=== PATIENT | female | born 1960 | race African-American/Black ===

== ENCOUNTER 2017-07-06 23:31 | Emergency (ER) | payer MEDICARE, OTHER ==
[~2017-07-06] VITALS: Ht 167.6 cm; Wt 103.0 kg
[~2017-07-06 23:31] MED LIST: AMLO10TA80 PO; ASPI-1159 PO; ATOR10TA69 PO; METF500T4 PO; METO25TA6 PO; PRAS10TA6 PO; TRAM50TA3 PO
[2017-07-07] MEDS ORDERED: MORPHINE SULFATE 2 MG/ML CPJ (NOT FOR IM USE) IV STA (01:25)
[2017-07-07] MEDS ORDERED: DIPHENHYDRAMINE 50MG/ML VIAL IV ONE (01:30)
[2017-07-07] MEDS ORDERED: ASPIRIN 81MG TABLET PO ONE (01:30)
[2017-07-07 01:51] LABS: BASOPHILS % 0.6 % (0.0-2.0); HEMATOCRIT. 34.5 % (36.0-48.0); HEMOGLOBIN. 11.1 g/dL (12.0-16.0); LYMPHOCYTES % 39.3 % (20.0-50.0); MEAN CORPUSCULAR HEMOGLOBIN 25.1 pg (28.0-32.0); MEAN CORPUSCULAR VOLUME 77.9 fL (81.0-99.0); MEAN PLATELET VOLUME 6.5 fl (7.4-10.4); NEUTROPHILS % 51.1 % (40.0-76.0); PLATELET 342 x1000/uL (130-400); RED BLOOD CELL COUNT 4.42 mill/uL (4.2-5.4); RED CELL DISTRIBUTION WIDTH 15.8 % (11.6-14.6)
[2017-07-07 01:54] LABS: CHLORIDE 108 mEq/L (98-107)
[2017-07-07 01:58] LABS: ETHANOL BLOOD < 10 mg/dL
[2017-07-07 01:59] LABS: INR 1.1; PROTHROMBIN TIME 11.3 sec (9.4-11.6)
[2017-07-07 06:31] VITALS: BP 102/65
== END 2017-07-07 06:38 | disposition home or self-care (01) ==
LOC: ER 23:31
DX: R07.9 Chest pain, unspecified (principal); I10 Essential (primary) hypertension; E78.00 Pure hypercholesterolemia, unspecified; I25.2 Old myocardial infarction; J45.909 Unspecified asthma, uncomplicated; Z79.82 Long term (current) use of aspirin
CPT/HCPCS: 36415; 71045; 80053; 83690; 84484; 85025; 85610; 93005; 96374; 96375; 99285; G0482; J1200; J2270

== ENCOUNTER 2018-06-15 16:06 | Inpatient (IN) | payer MEDICARE ==
[~2018-06-15] VITALS: Ht 165.1 cm; Wt 105.8 kg
[~2018-06-15 16:06] MED LIST changes: +METF-414 PO; -METF500T4 PO
[2018-06-15 21:36] LABS: BASOPHILS % 0.5 % (0.0-2.0); EOSINOPHILS % 2.3 % (0.0-5.0); HEMOGLOBIN. 12.3 g/dL (12.0-16.0); LYMPHOCYTES % 40.3 % (20.0-50.0); MEAN CORPUSCULAR HEMOGLOBIN 25.1 pg (28.0-32.0); MEAN CORPUSCULAR VOLUME 79.8 fL (81.0-99.0); MEAN PLATELET VOLUME 6.8 fl (7.4-10.4); MONOCYTES % 8.1 % (2.0-8.0); NEUTROPHILS % 48.8 % (40.0-76.0); PLATELET 271 x1000/uL (130-400); RED BLOOD CELL COUNT 4.89 mill/uL (4.2-5.4); RED CELL DISTRIBUTION WIDTH 17.4 % (11.6-14.6)
[2018-06-15 21:39] LABS: CHLORIDE 112 mEq/L (98-107)
[2018-06-15 21:43] LABS: PARTIAL THROMBOPLASTIN TIME 27.3 sec (23.4-31.0); PROTHROMBIN TIME 10.4 sec (9.6-11.0)
[2018-06-15 21:44] LABS: HCG SCREEN NEGATIVE
[2018-06-15] MEDS ORDERED: ASPIRIN 81MG TABLET PO ONE (22:00)
[2018-06-15 22:09] LABS: CLARITY URINE CLEAR (CLEAR); COLOR URINE YELLOW (YELLOW); KETONES URINE NEGATIVE (NEGATIVE); LEUKOCYTE ESTERASE URINE NEGATIVE (NEGATIVE); NITRITE URINE NEGATIVE (NEGATIVE); OCCULT BLOOD URINE NEGATIVE (NEGATIVE); PROTEIN URINE NEGATIVE (NEGATIVE); SPECIFIC GRAVITY URINE 1.019 (1.005-1.030)
[2018-06-15] MEDS ORDERED: ATORVASTATIN CALCIUM 40MG TABLET PO SCH (22:58)
[2018-06-16 11:38] VITALS: BP 147/128
[2018-06-16] MEDS ORDERED: PRAS10TA6 MT (12:09)
[2018-06-16] MEDS ORDERED: NIFE30TA83 MT (12:09)
[2018-06-16] MEDS ORDERED: MELO-104 MT (12:09)
[2018-06-16] MEDS ORDERED: TRAM150C25 MT (12:09)
[2018-06-16] MEDS ORDERED: MONT10TA24 MT (12:09)
[2018-06-16] MEDS ORDERED: LOSA25TA12 MT (12:09)
[2018-06-16 12:30] VITALS: BP 161/103
[2018-06-16] MEDS ORDERED: HYDROCODONE/ACETAMINOPHEN 5/325MG TABLET PO PRN (13:30)
[2018-06-16] MEDS ORDERED: REGADENOSON 0.4 MG/5 ML IV SCH (13:30)
[2018-06-16] MEDS ORDERED: CLONIDINE 0.1MG TABLET PO PRN (13:30)
[2018-06-16] MEDS ORDERED: ACETAMINOPHEN 325MG TABLET PO PRN (13:30)
[2018-06-16] MEDS ORDERED: ONDANSETRON HCL 4MG/2ML INJ IV PRN (13:30)
[2018-06-16] MEDS ORDERED: IPRATROPIUM/ALBUTEROL 0.5-3(2.5)MG/3ML NEB INH PRN (13:30)
[2018-06-16 14:03] LABS: *BARBITURATES SCREEN URINE NEGATIVE (NEGATIVE); *BENZODIAZEPINES SCREEN URINE NEGATIVE (NEGATIVE); *COCAINE SCREEN URINE NEGATIVE (NEGATIVE); METHADONE URINE SCREEN NEGATIVE (NEGATIVE)
[2018-06-16 14:04] LABS: *AMPHETAMINES SCREEN URINE NEGATIVE (NEGATIVE); CANNABINOID URINE SCREEN PRESUMTIVE POSITIVE (NEGATIVE); OPIATES URINE SCREEN NEGATIVE (NEGATIVE); PHENCYCLIDINE URINE SCREEN NEGATIVE (NEGATIVE)
[2018-06-16] MEDS: ASPIRIN 81MG EC TABLET PO SCH (14:22)
[2018-06-16] MEDS: LOSARTAN POTASSIUM 25 MG TABLET PO SCH (14:22)
[2018-06-16] MEDS: FUROSEMIDE 40MG/4ML VIAL IVP SCH ×2 (14:22→21:58)
[2018-06-16] MEDS: ENOXAPARIN 30MG/0.3ML SYR SUBCUT SCH ×2 (14:25→20:40)
[2018-06-16 15:45] LABS: CREATINE KINASE 283 IU/L (26-192)
[2018-06-16 16:26] VITALS: BP 152/78
[2018-06-16 20:00] VITALS: BP 150/85
[2018-06-16] MEDS: METOPROLOL TARTRATE 25MG TABLET PO SCH (20:38)
[2018-06-16] MEDS: ATORVASTATIN CALCIUM 20MG TABLET PO SCH (20:39)
[2018-06-16] MEDS: BLOOD SUGAR DIAGNOSTIC STRIP TEST SCH (21:04)
[2018-06-16 23:28] LABS: CREATINE KINASE 300 IU/L (26-192)
[2018-06-17] VITALS: BP 108/60
[2018-06-17] MEDS ORDERED: DEXTROSE 50% WATER 50ML SYRINGE IV PRN (03:45)
[2018-06-17 04:00] VITALS: BP 128/67
[2018-06-17] MEDS: BLOOD SUGAR DIAGNOSTIC STRIP TEST SCH ×4 (05:42→21:59)
[2018-06-17 06:18] LABS: BASOPHILS % 0.4 % (0.0-2.0); EOSINOPHILS % 2.2 % (0.0-5.0); HEMATOCRIT. 37.5 % (36.0-48.0); HEMOGLOBIN. 12.1 g/dL (12.0-16.0); LYMPHOCYTES % 47.5 % (20.0-50.0); MEAN CORPUSCULAR HEMOGLOBIN 25.5 pg (28.0-32.0); MEAN PLATELET VOLUME 6.9 fl (7.4-10.4); MONOCYTES % 8.5 % (2.0-8.0); NEUTROPHILS % 41.4 % (40.0-76.0); PLATELET 310 x1000/uL (130-400); RED BLOOD CELL COUNT 4.75 mill/uL (4.2-5.4); RED CELL DISTRIBUTION WIDTH 17.2 % (11.6-14.6)
[2018-06-17 06:24] LABS: CHLORIDE 107 mEq/L (98-107)
[2018-06-17 07:03] LABS: LDL CHOLESTEROL 65 mg/dL (5-100)
[2018-06-17 07:05] LABS: HDL CHOLESTEROL 52 mg/dL (40-59)
[2018-06-17 08:00] VITALS: BP 129/73
[2018-06-17] MEDS: INSULIN LISPRO 100 UNITS/ML SUBCUT SCH ×4 (08:10→21:00)
[2018-06-17] MEDS: ASPIRIN 81MG EC TABLET PO SCH (09:11)
[2018-06-17] MEDS: FUROSEMIDE 40MG/4ML VIAL IVP SCH ×2 (09:11→17:21)
[2018-06-17] MEDS: LOSARTAN POTASSIUM 25 MG TABLET PO SCH (09:11)
[2018-06-17] MEDS: METOPROLOL TARTRATE 25MG TABLET PO SCH ×2 (09:11→21:57)
[2018-06-17] MEDS: ENOXAPARIN 30MG/0.3ML SYR SUBCUT SCH ×2 (09:11→21:58)
[2018-06-17] MEDS ORDERED: REGADENOSON 0.4 MG/5 ML IV ONE (11:33)
[2018-06-17 12:00] VITALS: BP 120/67
[2018-06-17] MEDS: POTASSIUM CHLORIDE 20MEQ TABLET SR PO SCH (13:45)
[2018-06-17 16:00] VITALS: BP 108/68
[2018-06-17 20:00] VITALS: BP 134/64
[2018-06-17] MEDS: ATORVASTATIN CALCIUM 20MG TABLET PO SCH (21:57)
[2018-06-18] VITALS: BP 137/74
[2018-06-18 04:00] VITALS: BP 115/59
[2018-06-18] MEDS: BLOOD SUGAR DIAGNOSTIC STRIP TEST SCH (05:47)
[2018-06-18 06:38] LABS: BASOPHILS % 0.4 % (0.0-2.0); EOSINOPHILS % 2.7 % (0.0-5.0); HEMATOCRIT. 39.3 % (36.0-48.0); HEMOGLOBIN. 12.6 g/dL (12.0-16.0); LYMPHOCYTES % 50.4 % (20.0-50.0); MEAN CORPUSCULAR HEMOGLOBIN 25.3 pg (28.0-32.0); MONOCYTES % 10.7 % (2.0-8.0); NEUTROPHILS % 35.8 % (40.0-76.0); PLATELET 304 x1000/uL (130-400); RED BLOOD CELL COUNT 4.98 mill/uL (4.2-5.4); RED CELL DISTRIBUTION WIDTH 16.9 % (11.6-14.6)
[2018-06-18 07:43] LABS: CHLORIDE 109 mEq/L (98-107)
[2018-06-18 08:00] VITALS: BP 128/68
[2018-06-18] MEDS: INSULIN LISPRO 100 UNITS/ML SUBCUT SCH (08:10)
[2018-06-18] MEDS: ENOXAPARIN 30MG/0.3ML SYR SUBCUT SCH (09:22)
[2018-06-18] MEDS: METOPROLOL TARTRATE 25MG TABLET PO SCH (09:22)
[2018-06-18] MEDS: ASPIRIN 81MG EC TABLET PO SCH (09:22)
[2018-06-18] MEDS: FUROSEMIDE 40MG/4ML VIAL IVP SCH (09:22)
[2018-06-18] MEDS: LOSARTAN POTASSIUM 25 MG TABLET PO SCH (09:22)
[2018-06-18] MEDS: POTASSIUM CHLORIDE 20MEQ TABLET SR PO SCH (09:22)
[2018-06-18 16:37] VITALS: BP 118/68
== END 2018-06-18 17:14 | disposition home or self-care (01) | DRG 302 ==
LOC: ER 16:06 → 7WST 23:14 → EDBEDREQ 23:19 → EDBEDREQTM 23:19 → ENRESERV 06-16 10:03
PROVIDERS: ADMIT Internal Medicine; ATTEND Internal Medicine
DX: I25.118 Atherosclerotic heart disease of native coronary artery with other forms of angina pectoris (principal); I50.43 Acute on chronic combined systolic (congestive) and diastolic (congestive) heart failure; D68.59 Other primary thrombophilia; E66.2 Morbid (severe) obesity with alveolar hypoventilation; I11.0 Hypertensive heart disease with heart failure; I42.9 Cardiomyopathy, unspecified; E11.9 Type 2 diabetes mellitus without complications; E78.5 Hyperlipidemia, unspecified; Z95.5 Presence of coronary angioplasty implant and graft; Z79.82 Long term (current) use of aspirin; I25.2 Old myocardial infarction; Z79.84 Long term (current) use of oral hypoglycemic drugs; Z79.899 Other long term (current) drug therapy; Z68.38 Body mass index [BMI] 38.0-38.9, adult
CPT/HCPCS: 36415; 71045; 78452; 78582; 80048; 80061; 80305; 82550; 82962; 83036; 83735; 83880; 84439; 84443; 84484; 84703; 85379; 93005; 93017; 93306; 93923; 93970; 99285; A9500; A9558; C1893; J1650; J1940; J2785

== ENCOUNTER 2020-01-21 14:02 | Emergency (ER) | payer MEDICARE ==
[~2020-01-21] VITALS: Ht 160 cm; Wt 140.0 kg
[~2020-01-21 14:02] MED LIST changes: -AMLO10TA80 PO; -ASPI-1159 PO; +ASPI-1497 PO; -ATOR10TA69 PO; +LOSA25TA26 MT; -METO25TA6 PO; +NIFE-33 MT; -PRAS10TA6 PO; -TRAM50TA3 PO
[2020-01-21] MEDS ORDERED: GABA-529 PO (14:11)
[2020-01-21] MEDS ORDERED: HYDR25TA PO (14:11)
[2020-01-21 14:45] VITALS: BP 140/66
[2020-01-21 14:57] LABS: BASOPHILS % 0.9 % (0.0-2.0); EOSINOPHILS % 2.6 % (0.0-5.0); HEMATOCRIT. 38.9 % (36.0-48.0); HEMOGLOBIN. 12.5 g/dL (12.0-16.0); LYMPHOCYTES % 34.6 % (20.0-50.0); MEAN CORPUSCULAR HEMOGLOBIN 25.8 pg (28.0-32.0); MEAN CORPUSCULAR VOLUME 80.2 fL (81.0-99.0); MEAN PLATELET VOLUME 6.6 fl (7.4-10.4); MONOCYTES % 7.8 % (2.0-8.0); NEUTROPHILS % 54.1 % (40.0-76.0); PLATELET 299 x1000/uL (130-400); RED BLOOD CELL COUNT 4.85 mill/uL (4.2-5.4); RED CELL DISTRIBUTION WIDTH 16.6 % (11.6-14.6)
[2020-01-21 15:04] LABS: CHLORIDE 111 mEq/L (98-107)
[2020-01-21 15:08] LABS: ETHANOL BLOOD < 10 mg/dL
[2020-01-21 15:10] LABS: LDL CHOLESTEROL 84 mg/dL (5-100)
== END 2020-01-21 15:49 | disposition home or self-care (01) ==
LOC: ER 14:08 → CANBEDREQ 19:16
DX: G51.0 Bell's palsy (principal); K08.89 Other specified disorders of teeth and supporting structures; I10 Essential (primary) hypertension
CPT/HCPCS: 36415; 71045; 80053; 80320; 82962; 83721; 84484; 85025; 93005; 99285; G0480

== ENCOUNTER 2020-08-23 19:48 | Emergency (ER) | payer MEDICARE, MEDICAID ==
[~2020-08-23] VITALS: Ht 165.1 cm; Wt 98.0 kg
[~2020-08-23 19:48] MED LIST changes: +GABA-529 PO; +HYDR25TA PO
[2020-08-23] MEDS: DIPHENHYDRAMINE 50MG/ML VIAL IV ONE (21:59)
[2020-08-23] MEDS: METHYLPREDNISOLONE SOD SUCC 125 MG/2 ML VIAL IV ONE (21:59)
[2020-08-23 22:14] LABS: CHLORIDE 113 mEq/L (98-107)
[2020-08-23 22:20] LABS: BASOPHILS % 0.8 % (0.0-2.0); EOSINOPHILS % 2.6 % (0.0-5.0); HEMATOCRIT. 39.2 % (36.0-48.0); LYMPHOCYTES % 48.2 % (20.0-50.0); MEAN CORPUSCULAR HEMOGLOBIN 25.9 pg (28.0-32.0); MEAN CORPUSCULAR VOLUME 78.1 fL (81.0-99.0); MEAN PLATELET VOLUME 6.7 fl (7.4-10.4); MONOCYTES % 7.5 % (2.0-8.0); NEUTROPHILS % 40.9 % (40.0-76.0); PLATELET 287 x1000/uL (130-400); RED BLOOD CELL COUNT 5.03 mill/uL (4.2-5.4); RED CELL DISTRIBUTION WIDTH 16.7 % (11.6-14.6)
[2020-08-23] MEDS ORDERED: P50 MT (22:52)
[2020-08-23] MEDS ORDERED: DIPH25CA83 MT (22:52)
[2020-08-23] MEDS ORDERED: EPIN0.3A3 IM (22:52)
[2020-08-23 23:28] VITALS: BP 160/54
== END 2020-08-23 23:51 | disposition home or self-care (01) ==
LOC: ER 19:48
DX: T78.40XA Allergy, unspecified, initial encounter (principal); E11.9 Type 2 diabetes mellitus without complications; I10 Essential (primary) hypertension; Z79.899 Other long term (current) drug therapy; Z79.82 Long term (current) use of aspirin; X58.XXXA Exposure to other specified factors, initial encounter
CPT/HCPCS: 36415; 71045; 80053; 83880; 84484; 85025; 93005; 96374; 96375; 99285; J1200; J2930

== ENCOUNTER 2023-07-15 04:00 | Emergency (ER) | payer BC, MEDICAID ==
[~2023-07-15 04:00] MED LIST changes: +DIPH25CA83 MT; +EPIN0.3A3 IM; +P50 MT
== END 2023-07-15 04:53 | disposition left against medical advice (07) ==
LOC: ER 04:00
DX: M79.644 Pain in right finger(s) (principal); Z53.21 Procedure and treatment not carried out due to patient leaving prior to being seen by health care provider

== ENCOUNTER 2023-10-24 12:48 | Emergency (ER) | payer BC, MEDICAID ==
[~2023-10-24] VITALS: Ht 172.7 cm; Wt 80.0 kg
[2023-10-24 12:49] VITALS: O2SAT 98
[2023-10-24 13:27] LABS: HEMATOCRIT. 44.3 % (36.0-48.0); HEMOGLOBIN. 14.2 g/dL (12.0-16.0); MEAN CORPUSCULAR HEMOGLOBIN 26.4 pg (28.0-32.0); MEAN CORPUSCULAR HGB CONC 32.1 g/dL (31.0-37.0); MEAN PLATELET VOLUME 6.6 fl (7.4-10.4); PLATELET 283 x1000/uL (130-400); RED CELL DISTRIBUTION WIDTH 16.3 % (11.6-14.6); WHITE BLOOD COUNT 6.2 x1000/uL (4.5-11.0)
[2023-10-24 13:28] LABS: DIFFERENTIAL COMMENT 1
[2023-10-24 13:35] LABS: CARBON DIOXIDE 25 mEq/L (21-32); CHLORIDE 107 mEq/L (98-107); SODIUM 140 mEq/L (136-145)
[2023-10-24 13:36] LABS: CALCIUM 9.7 mg/dL (8.7-10.4)
[2023-10-24 13:41] LABS: PARTIAL THROMBOPLASTIN TIME 27.4 sec (23.4-31.0); PROTHROMBIN TIME 11.1 sec (9.6-11.0)
[2023-10-24] MEDS: POTASSIUM CHLORIDE 20MEQ TABLET SR PO ONE (14:31)
[2023-10-24 14:45] VITALS: BP 140/83; PULSE 80; RESP 16; TEMP 36.94740; O2SAT 98
[2023-10-24 15:06] LABS: ANISOCYTOSIS 1+; PLATELET ESTIMATE NORMAL
[2023-10-24 15:17] LABS: CREATININE 1.2 mg/dL (0.6-1.0); GLUCOSE 95 mg/dL (70-105); UREA NITROGEN BLOOD 8 mg/dL (9-23)
[2023-10-24 15:18] LABS: TROPONIN I HIGH SENSITIVITY 11 ng/L (3.0-34)
[2023-10-24] MEDS ORDERED: ACETAMINOPHEN 325MG TABLET PO PRN (15:45)
[2023-10-24] MEDS ORDERED: ONDANSETRON HCL 4MG/2ML INJ IV PRN (15:45)
[2023-10-24] MEDS ORDERED: IPRATROPIUM/ALBUTEROL 0.5-3(2.5)MG/3ML NEB HHN PRN (15:45)
[2023-10-24] MEDS ORDERED: HYDROCODONE/ACETAMINOPHEN 5/325MG TABLET PO PRN (15:45)
[2023-10-24] MEDS ORDERED: ENOXAPARIN 40MG/0.4ML SYR SUBCUT SCH (17:00)
[2023-10-25] MEDS ORDERED: ASPIRIN 81MG EC TABLET PO SCH (09:00)
== END 2023-10-24 17:04 | disposition left against medical advice (07) ==
LOC: ER 13:01 → CANBEDREQ 17:56
DX: R07.89 Other chest pain (principal); E11.9 Type 2 diabetes mellitus without complications; I25.2 Old myocardial infarction; I10 Essential (primary) hypertension; I51.9 Heart disease, unspecified; Z79.82 Long term (current) use of aspirin; Z79.899 Other long term (current) drug therapy
CPT/HCPCS: 36415; 71045; 73120; 80048; 83735; 83880; 84484; 85025; 85379; 93005; 99285

== ENCOUNTER 2025-01-18 15:33 | Emergency (ER) | payer BC, MEDICAID ==
[~2025-01-18] VITALS: Ht 165.1 cm; Wt 85.0 kg
[2025-01-18 15:48] VITALS: O2SAT 100
[2025-01-18 20:29] LABS: BASOPHILS % 1.3 % (0.0-2.0); EOSINOPHILS % 2.1 % (0.0-5.0); HEMATOCRIT. 44.8 % (36.0-48.0); HEMOGLOBIN. 14.5 g/dL (12.0-16.0); LYMPHOCYTES % 42.3 % (20.0-50.0); MEAN PLATELET VOLUME 7.1 fl (7.4-10.4); MONOCYTES % 7.9 % (2.0-8.0); NEUTROPHILS % 46.4 % (40.0-76.0); PLATELET 240 x1000/uL (130-400); RED BLOOD CELL COUNT 5.41 mill/uL (4.2-5.4); RED CELL DISTRIBUTION WIDTH 15.6 % (11.6-14.6)
[2025-01-18 20:51] LABS: CREATININE 1.0 mg/dL (0.6-1.0)
[2025-01-18 20:52] LABS: UREA NITROGEN BLOOD 11 mg/dL (9-23)
[2025-01-18 21:21] LABS: CLARITY URINE CLEAR (CLEAR); GLUCOSE URINE 3+ (NEGATIVE); KETONES URINE NEGATIVE (NEGATIVE); LEUKOCYTE ESTERASE URINE NEGATIVE (NEGATIVE); NITRITE URINE NEGATIVE (NEGATIVE); OCCULT BLOOD URINE NEGATIVE (NEGATIVE); PH URINE 5.5 (4.5-8.0); PROTEIN URINE NEGATIVE (NEGATIVE); SPECIFIC GRAVITY URINE 1.028 (1.005-1.030); UROBILINOGEN URINE 0.2 E.U./dL (0.2-1.0)
[2025-01-18] MEDS: KETOROLAC 15MG/ML VIAL IM ONE (22:03)
[2025-01-18 22:11] LABS: COLOR URINE STRAW (YELLOW)
[2025-01-18 22:12] LABS: BACTERIA URINE NONE SEEN; RBC URINE NONE SEEN /hpf (0-2); SQUAMOUS EPITHELIAL CELL URINE FEW /lpf (RARE/1+); WBC URINE 0-2 /hpf (0-2)
[2025-01-18] MEDS ORDERED: IBUP-1455 MT (22:25)
[2025-01-18] MEDS ORDERED: LIDO-53 TP (22:25)
[2025-01-18 22:26] VITALS: BP 160/78; PULSE 66; RESP 18; TEMP 37; O2SAT 99
== END 2025-01-18 22:47 | disposition home or self-care (01) ==
LOC: ER 15:33 → CMPBEDREQ 01-19 10:51
DX: S39.012A Strain of muscle, fascia and tendon of lower back, initial encounter (principal); S09.90XA Unspecified injury of head, initial encounter; E11.9 Type 2 diabetes mellitus without complications; Z79.899 Other long term (current) drug therapy; W18.30XA Fall on same level, unspecified, initial encounter; Y93.89 Activity, other specified; Y92.89 Other specified places as the place of occurrence of the external cause; Y99.8 Other external cause status
CPT/HCPCS: 99285; 70450; 80048; 81003; 85025; 36415; 72125; 72131; 96372; J1885